=== PATIENT | male | born 1970 | race Caucasian/White ===

== ENCOUNTER 2016-12-23 12:13 | Emergency (ER) | payer BC ==
[2016-12-23 12:24] VITALS: BP 120/74
--- NOTE | 2016-12-23 12:48 | EDM.PDOC ---
ED HPI GENERAL MEDICAL PROBLEM - General Chief Complaint: Lower Extremity Injury/Pain Stated Complaint: LEFT FOOT/ANKLE Time Seen by Provider: 12/23/16 12:45 Source of Information: Reports: Patient History Limitations: Reports: No Limitations - History of Present Illness INITIAL COMMENTS - FREE TEXT/NARRATIVE: 46 yo male who presents with pain and swelling to the lateral portion of left foot. States that he was walking off his patio and rolled his foot. Onset: Today Duration: Constant Location: Reports: Lower Extremity, Left Quality: Reports: Ache, Throbbing Severity: Moderate Improves with: Reports: None Worsens with: Reports: None Associated Symptoms: Reports: No Other Symptoms Left Ankle Pain Score (Numeric/FACES): 5 - Related Data Allergies Allergy/AdvReac Type Severity Reaction Status Date / Time No Known Allergies Allergy Verified 12/23/16 12:21 Home Meds: Home Meds . [No Known Home Meds] 06/14/13 [History] Past Medical History - Past Health History Medical/Surgical History: Denies Medical/Surgical History HEENT History: Reports: None Cardiovascular History: Reports: None Respiratory History: Reports: None Gastrointestinal History: Reports: None Genitourinary History: Reports: None Musculoskeletal History: Reports: None Neurological History: Reports: None Psychiatric History: Reports: None Endocrine/Metabolic History: Reports: None Hematologic History: Reports: None Immunologic History: Reports: None Oncologic (Cancer) History: Reports: None Dermatologic History: Reports: None Social & Family History - Tobacco Use Smoking Status *Q: Never Smoker - Recreational Drug Use Recreational Drug Use: No Review of Systems - Review of Systems Review Of Systems: ROS reveals no pertinent complaints other than HPI. ED EXAM, GENERAL - Physical Exam Exam: See Below Exam Limited By: No Limitations General Appearance: Alert, WD/WN, No Apparent Distress Respiratory/Chest: No Respiratory Distress, Lungs Clear, Normal Breath Sounds, No Accessory Muscle Use, Chest Non-Tender Cardiovascular: Normal Peripheral Pulses, Regular Rate, Rhythm, No Edema, No Gallop, No JVD, No Murmur, No Rub Extremities: Normal Inspection, No Pedal Edema, Normal Capillary Refill, Limited Range of Motion (due to pain), Other (swelling to lateral foot) Skin Exam: Ecchymosis Course - Vital Signs Last Recorded V/S: Last Vital Signs Temp 96.8 F 12/23/16 12:21 Pulse 71 12/23/16 12:21 Resp 18 12/23/16 12:21 BP 120/74 12/23/16 12:21 Pulse Ox 100 12/23/16 12:21 - Re-Assessments/Exams Free Text/Narrative Re-Assessment/Exam: 12/23/16 13:37 NO acute fractures noted. Informed pt, will place in post op boot, donald wrap, encourage touch down weight bearing only and rest. pt verbalizes understanding Departure - Departure Time of Disposition: 13:37 Disposition: Home, Self-Care 01 Condition: Good Clinical Impression: Contusion of thigh Sprain of foot, left Qualifiers: Encounter type: initial encounter Qualified Code(s): S93.602A - Unspecified sprain of left foot, initial encounter - Discharge Information Instructions: Muscle Strain, [id number], Crutch Use, [id number], Foot Sprain Forms: ED Department Discharge, Return to Work/School Form Additional Instructions: Do not put much weight on that left foot. Take medication as directed. Keep foot elevated as much as possible. Use ice packs for 20 mins at a time a few times a day. Use crutches as directed. Follow up with your PCP in 5-7 days for re-evaluation. Return for worsening symptoms.
== END 2016-12-23 14:04 | disposition home or self-care (01) ==
LOC: DL.ED 12:13
DX: S93.602A Unspecified sprain of left foot, initial encounter (principal); S70.12XA Contusion of left thigh, initial encounter; X50.9XXA Other and unspecified overexertion or strenuous movements or postures, initial encounter; Y93.01 Activity, walking, marching and hiking
CPT/HCPCS: 73630-LT; 99283